=== PATIENT | male | born 1985 | race African-American/Black ===

== ENCOUNTER 2021-01-03 19:29 | Emergency (ER) | payer SELFPAY ==
--- NOTE | ~2021-01-03 | CT_ITS ---
EXAMINATION: CT cervical spine wo con DATE: 01/03/2021 19:57 INDICATION: Neck pain after lifting. TECHNIQUE: Computed tomography (CT) of the cervical spine was performed without intravenous contrast. Automated exposure control and iterative reconstruction technique were employed. Exam dose: 483.28 mGy-cm total exam DLP. COMPARISON: None FINDINGS: C1 and C2 are normally aligned and the odontoid process is intact. No fracture or dislocat ion, locked facet or prevertebral soft tissue swelling. Cervical interspaces are preserved. IMPRESSION: Negative Reviewed, dictated and finalized at [facility] Reviewed, dictated and finalized at [facility] IMPRESSION: Negative
[2021-01-03 19:36] VITALS: BP 156/81; PULSE 80; RESP 18; TEMP 36.4; O2SAT 98
--- NOTE | 2021-01-03 19:49 | ED.GENADULT ---
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 when the pain began patient notes aching pain worse with any activity or movement took Tylenol with no improvement patient on arrival is in no distress but appears uncomfortable Related Data Allergies Allergy/AdvReac Type Severity Reaction Status Date / Time No Known Allergies Allergy Verified 01/03/21 20:42 Review of Systems Review of Systems: All systems reviewed & are unremarkable except as noted in HPI and below PMFSH Social History Social History (Updated 01/03/21 @ 19:50 by Kobe Robles PA-C) Smoking status: Current every day smoker Exam Narrative: Exam Narrative: GENERAL: Well-appearing, well-nourished, and in no acute distress. HEAD: Normocephalic, atraumatic. EYES: PERRLA and EOMI. ENT: Nares clear, no rhinorrhea or epistaxis. Mucous membranes moist. CHEST: Clear to auscultation. No respiratory distress. No wheezes rales or rhonchi HEART: Regular rate and rhythm. No murmur heard. Normal peripheral pulses. ABDOMEN: Soft, nontender, nondistended EXTREMITIES: Normal range of motion. No edema. Spasm and tenderness of the cervical musculature no thoracic or lumbar tenderness SKIN: Warm, dry, no rash. NEURO: No focal deficits. Alert and oriented x3. Cranial nerves II through XII grossly intact. Motor and sensory intact and symmetrical in the extremities PSYCH: Normal mood and affect. Course Course Emergency Course: Patient in the room aware of case findings treatment plan diagnosis agreeing to follow-up as instructed Vital Signs Vital signs: Vital Signs Temperature 97.6 F 01/03/21 19:36 Pulse Rate 80 01/03/21 19:36 Respiratory Rate 18 01/03/21 19:36 Blood Pressure 156/81 H 01/03/21 19:36 Pulse Oximetry 98 01/03/21 19:36 Temperature 97.6 F 01/03/21 19:36 Pulse Rate 80 01/03/21 19:36 Respiratory Rate 18 01/03/21 19:36 Blood Pressure 156/81 H 01/03/21 19:36 Pulse Oximetry 98 01/03/21 19:36 Medical Decision Making MDM Narrative Medical decision making narrative: Patients injury or pain is consistent with musculoskeletal etiology. No signs of neurological or vascular compromise on exam. Compartments and tisues are soft without signs of compartment syndrome. Pain is felt appropriate for further evaluation on an outpatient basis. No focal neurologic deficits. Vital Signs Vital Signs: Vital Signs Temperature 97.6 F 01/03/21 19:36 Pulse Rate 80 01/03/21 19:36 Respiratory Rate 18 01/03/21 19:36 Blood Pressure 156/81 H 01/03/21 19:36 Pulse Oximetry 98 01/03/21 19:36 Temperature 97.6 F 01/03/21 19:36 Pulse Rate 80 01/03/21 19:36 Respiratory Rate 18 01/03/21 19:36 Blood Pressure 156/81 H 01/03/21 19:36 Pulse Oximetry 98 01/03/21 19:36 Imaging Data Radiologist's impression: ITS Impressions Cervical Spine CT 01/03/21 20:19 IMPRESSION: Negative Discharge Plan Discharge Clinical Impression: Torticollis Patient Disposition: Home, Self-Care Condition: Stable Instructions: Antibiotic Form, Spasmodic Torticollis (ED) Additional Instructions: Follow up with your primary care doctor in 5-7 days for re-evaluation. Go to ER for worsening pain, vision changes, nausea/vomiting, fever/chills, weakness, chest pain, shortness of breath, numbness/tingling, slurred speech, difficulty walking, change in mental status etc. or any other concerns. Cool or warm compresses for symptom relief Take any prescribed medications as directed. Prescriptions: New cyclobenzapr
[2021-01-03] MEDS: diazePAM (*CRX) 5 MG TABLET PO (20:09)
[2021-01-03] MEDS: HYDROcodone/acetaminophen (*CRX) 7.5-325 MG TABLET 1 TAB PO (20:09)
--- NOTE | 2021-01-03 20:11 | PC.NURSE ---
pt refusing toradol shot at this time.
[2021-01-03] MEDS: KETOROLAC (*BKC) 60 MG/2 ML VIAL IM (20:18)
[2021-01-03 20:53] VITALS: BP 131/71; PULSE 84; RESP 18; O2SAT 99
== END 2021-01-03 20:55 | disposition home or self-care (01) ==
LOC: ANHED 20:02
PROVIDERS: Emergency Provider Emergency Medicine
DX: M43.6 Torticollis (principal); F17.200 Nicotine dependence, unspecified, uncomplicated
CPT/HCPCS: 72125; 96372; 99284; A9270; J1885